=== PATIENT | male | born 1945 | race Caucasian/White ===

== ENCOUNTER 2018-10-11 12:30 | Emergency (ER) | payer MEDICARE ==
[~2018-10-11] VITALS: Ht 172.7 cm; Wt 79.5 kg
[2018-10-11 12:35] VITALS: Ht 172.7 cm; Wt 79.5 kg
[2018-10-11 13:12] LABS: BASOPHILS 0.1 % (0-2); EOSINOPHILS 0 % (0-7); HEMATOCRIT 34.1 % (42.0-54.0); HEMOGLOBIN 12.2 g/dL (13.5-17.5); IMMATURE GRANULOCYTES 0.1 % (0-5); LYMPHOCYTES 7.3 % (15-50); MCH 30.6 pg (26.0-34.0); MCHC 35.8 g/dL (31.0-37.0); MCV 85.5 fL (80.0-100.0); MEAN PLATELET VOLUME 9.7 fL (7.4-10.4); MONOCYTES 13.9 % (2-11); NEUTROPHILS 78.6 % (40-80); PLATELET COUNT 107 10x3/uL (130-400); RBC 3.99 10x6/uL (4.20-6.10); RDW 13.5 % (11.5-14.5); WBC 7.8 10x3/uL (4.8-10.8)
[2018-10-11 13:33] LABS: ALBUMIN 3.6 g/dL (3.4-5.0); ANION GAP 11.8 mmol/L (8-16); BILIRUBIN - TOTAL 1.18 mg/dL (0.2-1.3); CARBON DIOXIDE 34.6 mmol/L (21.0-32.0); CREATININE - SERUM 1.3 mg/dL (0.6-1.3); POTASSIUM - SERUM 3.4 mmol/L (3.5-5.1); PROTEIN - SERUM 7.1 g/dL (6.4-8.2)
[2018-10-11 13:53] LABS: APTT 24.1 SECONDS (22.8-39.4); INR 1.07 (0.85-1.17); PROTIME 13.4 SECONDS (11.6-15.0)
[2018-10-11 14:04] LABS: CKMB 1.7 U/L (0.0-3.6); CREATINE KINASE 258 UL (21-232); TROPONIN-I < 0.017 ng/mL (0.000-0.060)
[2018-10-11 14:59] LABS: APPEARANCE CLEAR (CLEAR); BACTERIA MODERATE /hpf (NONE SEEN); BILIRUBIN NEGATIVE (NEGATIVE); COLOR DK YELLOW (YELLOW); GLUCOSE NEGATIVE (NEGATIVE); KETONE SMALL mg/dL (NEGATIVE); NITRITE NEGATIVE (NEGATIVE); PROTEIN NEGATIVE (NEGATIVE); UROBILINOGEN NORMAL (NORMAL); WHITE CELLS - URINE 0-5 /hpf (0-5)
[2018-10-11] MEDS ORDERED: KEFLEX500 MG PO (15:50)
[2018-10-11] MEDS ORDERED: MACROBID100 MG PO (15:50)
[2018-10-11 19:42] VITALS: BP 115/53
== END 2018-10-11 19:42 | disposition home or self-care (01) ==
LOC: D.ER 12:30
PROVIDERS: Family Medicine
DX: N39.0 Urinary tract infection, site not specified (principal); F10.10 Alcohol abuse, uncomplicated; R35.0 Frequency of micturition; R30.0 Dysuria; M54.5 Low back pain